=== PATIENT | female | born 1970 | race Caucasian/White ===

== ENCOUNTER 2020-04-13 18:12 | Outpatient (REF) | payer MEDICARE, MEDICAID, SELFPAY ==
[2020-04-15 17:48] LABS: COVID-19 RT-PCR Result NEGATIVE (Negative)
== END 2020-04-13 18:32 ==
LOC: NCHCN 18:12
PROVIDERS: PCP Nurse Practitioner Family; Visit Provider Nurse Practitioner Community Health
DX: B34.9 Viral infection, unspecified (principal)
CPT/HCPCS: U0003

== ENCOUNTER 2021-11-29 19:54 | Outpatient (REF) | payer MEDICARE, MEDICAID, SELFPAY ==
[2021-11-29 22:14] LABS: Abs Immature Grans 0.02 10^3/uL (0.0-0.06); Absolute Basophil Count 0.03 10^3/uL (0.0-0.2); Absolute Eosinophil Count 0.04 10^3/uL (0.0-0.7); Absolute Lymphocyte Count 3.12 10^3/uL (1.2-3.4); Absolute Monocyte Count 0.65 10^3/uL (0.1-0.8); Absolute Neutrophil Count 4.32 10^3/uL (1.2-6.7); Basophils % 0.4; Eosinophils % 0.5; HCT 40.3 % (36.0-46.0); HGB 13.5 g/dL (11.2-15.7); Immature Grans % 0.2; Lymphocytes % 38.1; MCH 32.1 pg (27.0-33.0); MCHC 33.5 % (32.0-36.0); MCV 96 fL (80-95); Monocytes % 7.9; Neutrophils % 52.9; Platelet Count 329 10^3/uL (130-400); RBC 4.21 10^6/uL (3.93-5.22); RDW 12.7 % (11.7-14.6); RDW-SD 44.5 fL; WBC 8.18 10^3/uL (4.4-10.8)
[2021-11-29 22:24] LABS: TSH (W/Ref FT4) 0.64 uIU/mL (0.36-3.74)
[2021-11-30 06:50] LABS: Vitamin D 25 Total 45.6 ng/mL (30-100)
== END 2021-11-29 19:55 | disposition home or self-care (01) ==
LOC: NCHCN 19:54
PROVIDERS: PCP Nurse Practitioner Family; Visit Provider Registered Nurse
DX: R53.83 Other fatigue (principal); E55.9 Vitamin D deficiency, unspecified; R63.5 Abnormal weight gain
CPT/HCPCS: 82306; 84443; 85025

== ENCOUNTER 2022-02-22 16:43 | Outpatient (REF) | payer MEDICARE, MEDICAID, SELFPAY ==
[2022-02-24 09:17] LABS: HIV-1/2 Ag & Ab Screen Negative (Negative)
[2022-02-24 13:40] LABS: Chlamydia Result Negative (Negative); GC Result Negative (Negative)
[2022-02-26 10:40] LABS: Syphilis Serology (RPR) Negative (Negative)
[2022-02-26 10:56] LABS: Hepatitis C Ab w Rflx HCV PCR Negative (Negative)
== END 2022-02-22 16:44 | disposition home or self-care (01) ==
LOC: NCHCN 16:43
PROVIDERS: PCP Nurse Practitioner Family; Visit Provider Family Medicine
DX: Z11.3 Encounter for screening for infections with a predominantly sexual mode of transmission (principal); Z11.4 Encounter for screening for human immunodeficiency virus [HIV]; Z11.59 Encounter for screening for other viral diseases; Z72.51 High risk heterosexual behavior
CPT/HCPCS: 86803; 87389; 87491; 87591; 86592

== ENCOUNTER 2023-08-07 14:11 | Outpatient (REF) | payer MEDICARE, MEDICAID, SELFPAY | END 2023-08-07 14:12 | disposition home or self-care (01) | LOC: NCHCN 14:11 | PROVIDERS: PCP Nurse Practitioner Family; Visit Provider Physician Assistant | DX: M79.644 Pain in right finger(s) (principal) | CPT/HCPCS: 84550 ==

== ENCOUNTER 2023-08-13 13:12 | Outpatient (REF) | payer MEDICARE, MEDICAID, SELFPAY ==
[2023-08-13 14:23] LABS: Abs Immature Grans 0.02 10^3/uL (0.0-0.06); Absolute Basophil Count 0.03 10^3/uL (0.0-0.2); Absolute Eosinophil Count 0.01 10^3/uL (0.0-0.7); Absolute Lymphocyte Count 1.39 10^3/uL (1.2-3.4); Absolute Monocyte Count 0.25 10^3/uL (0.1-0.8); Absolute Neutrophil Count 8.58 10^3/uL (1.2-6.7); Basophils % 0.3; Eosinophils % 0.1; HCT 40.7 % (36.0-46.0); HGB 13.6 g/dL (11.2-15.7); Immature Grans % 0.2; Lymphocytes % 13.5; MCH 31.7 pg (27.0-33.0); MCHC 33.4 % (32.0-36.0); MCV 95 fL (80-95); MPV 9.5 fL (8.0-11.0); Monocytes % 2.4; Neutrophils % 83.5; Platelet Count 321 10^3/uL (130-400); RBC 4.29 10^6/uL (3.93-5.22); RDW 13.2 % (11.7-14.6); RDW-SD 45.7 fL; WBC 10.28 10^3/uL (4.4-10.8)
[2023-08-13 14:27] LABS: ESR 15 mm/hr (0-20)
[2023-08-13 16:14] LABS: C-Reactive Protein < 0.50 mg/dL (<or=0.5)
[2023-08-13 22:18] LABS: Rheumatoid Factor <8.6 IU/mL (<12.0)
[2023-08-14 08:54] LABS: Cyclic Citrullinated Peptide <2.5 U/mL (<5.0)
[2023-08-14 10:46] LABS: Lyme Ab w Rflx to Lyme Confirm Negative (Negative)
[2023-08-15 15:31] LABS: ANA Interpretation Negative (Negative)
[2023-08-15 23:09] LABS: Anaplasma phagocytophilum Negative (Negative); B. miyamotoi PCR Negative (Negative); Babesia divergens/MO-1 Negative (Negative); Babesia duncani Negative (Negative); Babesia microti Negative (Negative); Ehrlichia chaffeensis Negative (Negative); Ehrlichia ewingii/canis Negative (Negative); Ehrlichia muris eauclairensis Negative (Negative)
== END 2023-08-13 13:13 | disposition home or self-care (01) ==
LOC: NCHCN 13:12
PROVIDERS: PCP Nurse Practitioner Family; Visit Provider Physician Assistant
DX: M79.644 Pain in right finger(s) (principal)
CPT/HCPCS: 85652; 86200; 87798; 85025; 86038; 86140; 86431; 86618